=== PATIENT | female | born 1945 | race Caucasian/White ===

== ENCOUNTER → 2020-05-23 | Outpatient (CLI) | payer BC, MEDICARE | END | disposition home or self-care (01) | LOC: OIH 10:54 | PROVIDERS: ATTEND Internal Medicine | DX: M16.12 Unilateral primary osteoarthritis, left hip (principal); M25.552 Pain in left hip | CPT/HCPCS: 73502 ==

== ENCOUNTER → 2021-07-18 | Outpatient (CLI) | payer MEDICARE | END | disposition home or self-care (01) | LOC: RAH 16:05 | PROVIDERS: ATTEND Internal Medicine | DX: R06.02 Shortness of breath (principal); M47.815 Spondylosis without myelopathy or radiculopathy, thoracolumbar region | CPT/HCPCS: 71046 ==

== ENCOUNTER → 2022-04-03 | Outpatient (CLI) | payer MEDICARE ==
[2022-04-03 10:40] LABS: BASOPHILS % (AUTO) 0.6 % (0.0-5.0); HEMATOCRIT 43.7 % (36-48); LYMPHOCYTES % (AUTO) 24.3 % (21.0-51.0); MEAN CORPUSCULAR HEMOGLOBIN 29.7 pg (27.0-33.0); MEAN CORPUSCULAR HGB CONC 32.7 g/dL (32.0-36.0); MEAN CORPUSCULAR VOLUME 90.9 fL (79-99); MONOCYTES % (AUTO) 5.8 % (3.0-13.0); NEUTROPHILS % (AUTO) 66.4 % (40.0-77.0); PLATELET COUNT (AUTO) 156 K/uL (130-400); RED BLOOD CELL COUNT(AUTO) 4.81 MIL/uL (4.00-5.50); RED CELL DISTRIBUTION WIDTH 12.6 % (11.0-15.5); WHITE BLOOD COUNT (AUTO) 8.2 K/uL (4.8-10.8)
[2022-04-03 11:02] LABS: ALBUMIN 3.3 g/dL (3.5-5.0); BILIRUBIN,DIRECT 0.2 mg/dL (0.0-0.3); CREATININE 1.2 mg/dL (0.5-1.5); POTASSIUM 3.9 mmol/L (3.5-5.1); THYROID STIMULATING HORMONE 0.66 uIU/mL (0.36-3.74); TOTAL PROTEIN, SERUM 6.5 g/dL (6.0-8.3)
[2022-04-03 11:39] LABS: HEMOGLOBIN A1C 6.3 % (4.0-6.0)
== END | disposition home or self-care (01) ==
LOC: LAB 09:44
PROVIDERS: ATTEND Internal Medicine
DX: E89.0 Postprocedural hypothyroidism (principal); J30.9 Allergic rhinitis, unspecified; N18.31 Chronic kidney disease, stage 3a; R61 Generalized hyperhidrosis; R73.01 Impaired fasting glucose
CPT/HCPCS: 36415; 80053; 80061; 80076; 82043; 82570; 83036; 84443; 85025

== ENCOUNTER → 2023-08-21 | Outpatient (CLI) | payer MEDICARE, OTHER | END | disposition home or self-care (01) | LOC: LAB 10:53 | PROVIDERS: ATTEND Internal Medicine | DX: Z01.818 Encounter for other preprocedural examination (principal) | CPT/HCPCS: 93005 ==

== ENCOUNTER → 2024-08-18 | Outpatient (CLI) | payer OTHER ==
--- NOTE | 2024-08-18 16:45 | HMCIMG ---
MRI RIGHT SHOULDER WITHOUT CONTRAST INDICATION: M75.40 impingement syndrome of unspecified shoulder COMPARISON: None PARAMETERS: Long and short axis fat and water weighted sequences were obtained through the right shoulder. FINDINGS: Full thickness complete supraspinatus tendon tear with retraction to the level of the acromioclavicular joint. Moderate to severe supraspinatus muscle atrophy. Remainder of the chest radiograph is intact. Mild to moderate infraspinatus atrophy. No evidence for myoedema. Mild subacromial greater than subdeltoid bursal fluid. Narrowing of the acromiohumeral space secondary to supraspinatus tendon tear. Mild inferior acromial spurring. Type II acromion. 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 Glenohumeral alignment is well maintained without significant osteoarthropathy. Glenoid concavity is well preserved without "bare area" erosion. No evidence for labral tear. Long head biceps tendon is intact, and not subluxed. Small amount of fluid along the humeral bicipital groove. Small glenohumeral joint effusion. No abnormal soft tissue mass, ganglion, or paralabral cyst is present. No evidence for fracture. IMPRESSION: 1. 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 2. 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 3. Small glenohumeral joint effusion.
== END | disposition home or self-care (01) ==
LOC: RAH 14:30
PROVIDERS: ATTEND Internal Medicine
DX: M75.121 Complete rotator cuff tear or rupture of right shoulder, not specified as traumatic (principal); M25.411 Effusion, right shoulder; M19.011 Primary osteoarthritis, right shoulder; M25.80 Other specified joint disorders, unspecified joint; M75.40 Impingement syndrome of unspecified shoulder; R29.898 Other symptoms and signs involving the musculoskeletal system; M62.511 Muscle wasting and atrophy, not elsewhere classified, right shoulder
CPT/HCPCS: 73221